=== PATIENT | male | born 1990 | race Caucasian/White ===

== ENCOUNTER 2020-05-31 21:17 | Emergency (ER) | payer OTHER ==
[~2020-05-31] VITALS: Ht 182.9 cm; Wt 79.4 kg
[2020-05-31 21:45] LABS: ABSOLUTE BASOPHILS 0.1 thou/uL (0.0-0.2); ABSOLUTE MONOCYTES 0.5 thou/uL (0.0-1.2); ABSOLUTE NEUTROPHILS 8.7 thou/uL (1.6-8.1); BASOPHILS 0.6 %; EOSINOPHILS 0.4 %; HEMATOCRIT 47.7 % (42.0-52.0); HEMOGLOBIN 16.1 gm/dL (14.0-18.0); LYMPHOCYTES 9.7 %; MCHC 33.7 g/dL (28.0-37.0); MCV 86.2 fL (80.0-100.0); MONOCYTES 4.9 %; MPV 7.1 fl. (7.2-11.1); NUCLEATED RBCS 0 /100WBC; PLATELET COUNT* 227 thou/uL (150-400); POLYS 84.4 %; RBC 5.53 mil/uL (4.50-6.00); RDW-CV 13.4 % (10.5-14.5); WBC 10.3 thou/uL (4.0-11.0)
[2020-05-31 21:58] LABS: CALCIUM 9.8 mg/dL (8.5-10.1); CREATININE 0.9 mg/dL (0.6-1.3); POTASSIUM 4.2 mmol/L (3.5-5.1)
[2020-05-31] MEDS ORDERED: ATIVAN2 MG PO (23:49)
[2020-06-01 00:07] VITALS: BP 133/70
--- NOTE | 2020-06-01 10:50 | EKG ---
[place] [address] ELECTROCARDIOGRAM REPORT Name: MYKEL GOOD Room: [facility]#: [id number] Admission: 05/31/20 Attend Phys: Discharge: 06/01/20 Date of : 89 Date of Service: 05/31/202128 Report #: [id number] THIS REPORT FOR: //name// [facility] ED Test Date: 2020-05-31 Test Time: 21:29:47 Pat Name: MYKEL GOOD Department: Room: Gender: Manager Technical Support: : 1990 Requested By: Mary Chandler Order Number: [id number] MD: Dorian Garzon Measurements Intervals [place] Rate: 85 P: 85 SD: 136 QRS: 102 QRSD: 100 T: 65 QT: 372 QTc: 443 Interpretive Statements Sinus rhythm Left posterior fascicular block No previous ECG available for comparison Electronically Signed On 06-01-2020 10:50:04 CDT by Dorian Garzon [email or web address] <ELECTRONICALLY SIGNED> By: Dorian Garzon MD, [facility] 06/01/20 1050 28 28 Dorian Garzon MD, FAC /EPI
== END 2020-06-01 00:08 | disposition home or self-care (01) ==
LOC: M.ERS 21:17
PROVIDERS: Emergency Medicine
DX: F19.10 Other psychoactive substance abuse, uncomplicated (principal)

== ENCOUNTER 2020-06-17 16:20 | Emergency (ER) | payer OTHER ==
[~2020-06-17] VITALS: Ht 152.4 cm; Wt 73.1 kg
[~2020-06-17 16:20] MED LIST: ATIVAN2 MG PO
[2020-06-17 17:02] LABS: HEMATOCRIT 38.9 % (42.0-52.0); HEMOGLOBIN 13.1 gm/dL (14.0-18.0); MCH 28.9 pg (26.0-34.0); MCHC 33.8 g/dL (28.0-37.0); MCV 85.7 fL (80.0-100.0); MPV 6.9 fl. (7.2-11.1); RBC 4.54 mil/uL (4.50-6.00); RDW-CV 13.5 % (10.5-14.5); WBC 9.5 thou/uL (4.0-11.0)
[2020-06-17 17:05] LABS: AMP/METHAMP POSITIVE (Negative); BARBITURATES Negative (Negative); BENZODIAZEPINES Negative (Negative); COCAINE Negative (Negative); METHADONE Negative (Negative); OPIATES POSITIVE (Negative); PCP Negative (Negative); THC Negative (Negative)
[2020-06-17 17:09] LABS: CALCIUM 9.4 mg/dL (8.5-10.1); CREATININE 0.9 mg/dL (0.6-1.3); POTASSIUM 3.7 mmol/L (3.5-5.1)
[2020-06-17 17:13] LABS: ALBUMIN 3.9 g/dL (3.4-5.0); TOTAL BILIRUBIN 0.8 mg/dL (<0.1-1.0)
[2020-06-17 17:18] LABS: SALICYLATE < 2.8 mg/dL (2.8-20.0)
[2020-06-17 17:22] LABS: ACETAMINOPHEN < 2 ug/mL (10-30); ALCOHOL < 10 mg/dL (<10)
[2020-06-17 19:04] VITALS: BP 137/101
== END 2020-06-17 19:04 | disposition home or self-care (01) ==
LOC: M.ERS 16:20
PROVIDERS: Nurse Practitioner Family
DX: F11.23 Opioid dependence with withdrawal (principal); F15.23 Other stimulant dependence with withdrawal

== ENCOUNTER 2020-06-19 09:35 | Emergency (ER) | payer OTHER ==
[~2020-06-19] VITALS: Ht 182.9 cm; Wt 79.4 kg
[2020-06-19 10:05] LABS: ABSOLUTE BASOPHILS 0.1 thou/uL (0.0-0.2); ABSOLUTE EOSINOPHILS 0.1 thou/uL (0.0-0.7); ABSOLUTE LYMPHOCYTES 1.8 thou/uL (0.8-5.3); ABSOLUTE MONOCYTES 0.7 thou/uL (0.0-1.2); ABSOLUTE NEUTROPHILS 5.2 thou/uL (1.6-8.1); BASOPHILS 0.9 %; EOSINOPHILS 1.5 %; HEMATOCRIT 41.3 % (42.0-52.0); HEMOGLOBIN 13.9 gm/dL (14.0-18.0); LYMPHOCYTES 23.3 %; MCHC 33.8 g/dL (28.0-37.0); MCV 85.9 fL (80.0-100.0); MONOCYTES 8.3 %; NUCLEATED RBCS 0 /100WBC; PLATELET COUNT* 267 thou/uL (150-400); RDW-CV 13.4 % (10.5-14.5); WBC 7.8 thou/uL (4.0-11.0)
[2020-06-19 10:15] LABS: CALCIUM 9.1 mg/dL (8.5-10.1); CREATININE 0.9 mg/dL (0.6-1.3); POTASSIUM 3.8 mmol/L (3.5-5.1)
[2020-06-19 10:20] LABS: ALBUMIN 4.1 g/dL (3.4-5.0); TOTAL BILIRUBIN 0.8 mg/dL (<0.1-1.0); TOTAL PROTEIN 7.5 g/dL (6.4-8.2)
[2020-06-19 10:22] LABS: ACETAMINOPHEN < 2 ug/mL (10-30); ALCOHOL < 10 mg/dL (<10); SALICYLATE < 2.8 mg/dL (2.8-20.0)
[2020-06-19 10:53] LABS: URINE BILIRUBIN NEGATIVE (Negative); URINE BLOOD NEGATIVE (Negative); URINE CLARITY CLEAR; URINE COLOR YELLOW; URINE GLUCOSE-RANDOM NEGATIVE (Negative); URINE KETONES NEGATIVE (Negative); URINE LEUKOCYTES-REFLEX NEGATIVE (Negative); URINE NITRITE-REFLEX NEGATIVE (Negative); URINE PROTEIN NEGATIVE (Negative); URINE SPECIFIC GRAVITY <= 1.005 (1.005-1.030); URINE UROBILINOGEN 0.2 E.U./dl (0.2-1.0)
[2020-06-19 11:01] LABS: AMP/METHAMP POSITIVE (Negative); BARBITURATES Negative (Negative); BENZODIAZEPINES Negative (Negative); COCAINE Negative (Negative); METHADONE Negative (Negative); OPIATES POSITIVE (Negative); PCP Negative (Negative); THC Negative (Negative)
[2020-06-19 12:34] VITALS: BP 95/65
== END 2020-06-19 12:35 | disposition home or self-care (01) ==
LOC: M.ERS 09:35
PROVIDERS: Emergency Medicine Emergency Medical Services
DX: F19.20 Other psychoactive substance dependence, uncomplicated (principal)